=== PATIENT | female | born 1955 | race Caucasian/White ===

== ENCOUNTER → 2018-06-27 10:55 | Outpatient (CLI) | payer BC, SELFPAY ==
--- NOTE | 2018-06-27 10:58 | BI_ITS ---
MAMMOGRAPHY - BILATERAL SCREENING REASON FOR EXAM: Female, 63 years old. Routine annual screening examination. PERTINENT HISTORY: Non-contributory. TECHNIQUE: Digital bilateral breast medina (3D mammographic acquisition) in the CC and MLO projections. 2-D mediolateral oblique (MLO) and craniocaudad (CC) views of both breasts were obtained. CAD: Full Field Digital Mammography with Computer Added Detection was performed. COMPARISON: Comparison is made with prior study dated June 24, 2017 and June 05, 2016. FINDINGS: Breast Composition: The breasts are heterogeneously dense, which may obscure small masses. There are no dominant masses or suspicious calcifications. Stable small benign-appearing axillary lymph nodes. Stable asymmetry of breast tissue with more breast tissue is seen in the deep upper medial portion of the right breast as compared to the left side. No other significant abnormalities are identified. There has been no significant change since the prior study. BI/SCREENING MAMM (CAD), BILAT IMPRESSION: Stable bilateral screening mammogram. Yearly follow-up mammogram recommended. (A) ASSESSMENT CATEGORY: BIRADS Category 2: Benign. A letter regarding these results will be sent to the patient by the facility within 30 days. Approximately 10% of breast cancers are not detected by mammography. A normal mammogram should not delay biopsy of a clinically suspicious abnormality. [id number] Electronically Signed: Camilo Wang MD at 12:47 EDT Tel [phone], Service support ,
== END ==
PROVIDERS: Family Provider Family Medicine; PCP Family Medicine; Visit Provider Obstetrics & Gynecology
DX: Z12.31 Encounter for screening mammogram for malignant neoplasm of breast (principal)
CPT/HCPCS: 77063; 77067

== ENCOUNTER → 2019-06-28 10:15 | Outpatient (CLI) | payer BC, SELFPAY ==
--- NOTE | 2019-06-28 10:19 | BI_ITS ---
MAMMOGRAPHY - BILATERAL SCREENING REASON FOR EXAM: Female, 64 years old. Routine annual screening examination. PERTINENT HISTORY: Non-contributory. TECHNIQUE: Digital bilateral breast medina (3D mammographic acquisition) in the CC and MLO projections. 2-D mediolateral oblique (MLO) and craniocaudad (CC) views of both breasts were obtained. CAD: Full Field Digital Mammography with Computer Added Detection was performed. COMPARISON: Comparison is made with prior study dated June 27, 2018 and June 24, 2017. FINDINGS: Breast Composition: The breasts are extremely dense, which lowers the sensitivity of mammography. There are no dominant masses or suspicious calcifications. Stable benign-appearing bilateral axillary lymph nodes. No other significant abnormalities are identified. There has been no significant change since the prior study. BI/SCREENING MAMM (CAD), BILAT IMPRESSION: Stable bilateral screening mammogram. Yearly follow-up mammogram recommended. (A) ASSESSMENT CATEGORY: BIRADS Category 2: Benign. A letter regarding these results will be sent to the patient by the facility within 30 days. Approximately 10% of breast cancers are not detected by mammography. A normal mammogram should not delay biopsy of a clinically suspicious abnormality. [id number] Electronically Signed: Camilo Wang, at 14:20 EDT , Service support ,
== END ==
PROVIDERS: Family Provider Family Medicine; PCP Family Medicine; Referring Provider Obstetrics & Gynecology; Visit Provider Obstetrics & Gynecology
DX: Z12.31 Encounter for screening mammogram for malignant neoplasm of breast (principal)
CPT/HCPCS: 77067

== ENCOUNTER → 2019-12-21 10:41 | Outpatient (CLI) | payer BC, SELFPAY ==
[2019-12-12 10:24] VITALS: BMI 24.6
--- NOTE | 2019-12-21 10:46 | ECHOD_ITS ---
Reason For Study: ASD Procedure This was a 2D Doppler, Color Flow transthoracic echocardiogram. Exam performed in department. Left Ventricle Normal size and thickness. The estimated ejection fraction is 65 %. Stage 1 diastolic dysfunction. No regional wall motion abnormalities noted. Right Ventricle Normal size and thickness. Normal systolic function. Atria Normal left atrium. Normal right atrium. Normal atrial septum. Bubble contrast study negative for right to left interatrial shunt. Mitral Valve The mitral valve is structurally normal. No prolapse or stenosis seen. Tricuspid Valve Normal tricuspid valve. Trivial tricuspid valve insufficiency. Right ventricular systolic pressure estimated to be 25 mmHg. Aortic Valve Trisinus/trileaflet aortic valve. Mild focal aortic valve thickening. Pulmonic Valve Normal pulmonic valve. Great Vessels Normal aortic root. Normal arch. Normal inferior vena cava. Inferior vena cava collapse with sniff. Pericardium/Pleural No pericardial effusion. Medication 22 gauge I.V. with prn adaptor inserted into right arm. Performed a rapid injection of agitated mix of 9 cc saline and 1cc air to assess for atrial septal defect. MMode/2D Measurements & Calculations LVIDd: 4.0 cm IVSd: 0.72 cm Ao root diam: 2.8 cm LVIDs: 2.8 cm LVPWd: 0.80 cm FS: 29.2 % LAV(MOD-bp): 37.1 ml LA A4 area: 15.5 cm2 LA dimension(2D): 3.4 cm LAV(MOD-bp) Indexed: 21.3 ml/m2 LAV(MOD-sp2): 34.6 ml LAV(MOD-sp4): 37.9 ml RA A4 area: 12.2 cm2 Time Measurements MV dec time: 0.23 sec Doppler Measurements & Calculations MV E max thaddeus: 91.2 cm/sec Lat Peak E' Thaddeus: 11.3 cm/sec Med Peak E' Thaddeus: 6.9 cm/sec MV A max thaddeus: 113.3 cm/sec E/E' lat: 8.1 E/E' med: 13.2 MV E/A: 0.80 MV V2 max: 122.5 cm/sec Ao V2 max: 182.5 cm/sec LV V1 max: 131.7 cm/sec MV max P.0 mmHg Ao max P.3 mmHg LV V1 max P.9 mmHg MV V2 mean: 68.2 cm/sec MV mean P.2 mmHg MV V2 VTI: 36.9 cm TR max thaddeus: 222.6 cm/sec MV P1/2t-pr_phl: 120.5 msec TR max P.8 mmHg Interpretation Summary The estimated ejection fraction is 65 %. Stage 1 diastolic dysfunction. Bubble contrast study negative for right to left interatrial shunt. Trivial tricuspid valve insufficiency. Right ventricular systolic pressure estimated to be 25 mmHg. There is no comparison study available. Ordering Physician: Dereck Mohamud Referring Physician: HAWK PIERCE Performed By: Stephanie Lockwood, ASHTYN, RVT
== END ==
PROVIDERS: PCP Family Medicine; Referring Provider Internal Medicine Cardiovascular Disease; Visit Provider Internal Medicine Cardiovascular Disease
DX: R00.2 Palpitations (principal); Q24.8 Other specified congenital malformations of heart; R01.1 Cardiac murmur, unspecified; E78.5 Hyperlipidemia, unspecified; I10 Essential (primary) hypertension
CPT/HCPCS: 93306

== ENCOUNTER → 2020-01-31 10:20 | Outpatient (CLI) | payer BC, SELFPAY ==
[2019-12-12 10:24] VITALS: BMI 24.6
--- NOTE | 2020-01-31 10:22 | STE_ITS ---
Reason For Study: CHEST PAIN Stress Results Protocol: Monroe Protocol Maximum Predicted HR: 157 bpm Target HR: 133 bpm % Maximum Predicted HR: 90 % DurationHeart Rate Stage (mm:ss) (bpm) BP Comment BASELINE 63 128/50 STAGE 1 3:00 112 172/60 STAGE 2 3:00 136 162/60 STAGE 3 0:22 142 / INCREASED SOB AND LEG FATIGUE RECOVERY 83 142/60 Stress Duration: 6:22 mm:ss Maximum Stress HR: 142 bpm Baseline Echocardiogram Findings The estimated ejection fraction is 65 %. Stress Echo Wall motion Data Resting WM Intermediate WM Stress WM Resting Wall Motion Wall Motion Stress No regional wall motion No regional wall motion abnormalities noted. abnormalities noted. EKG Data The baseline ECG displays normal sinus rhythm. The patient exercised according to the regular Monroe protocol for a total duration of 6:22. The maximum heart rate attained was 148 beats per minute. This was 94% of maximum predicted heart rate. The patient exercised into stage 3 of the Monroe protocol. During stress, there were no ST or T wave changes noted to suggest ischemia. No arrhythmias noted. No clinical angina was noted. Interpretation Summary The estimated ejection fraction is 65 %. Normal, adequate, treadmill echocardiogram. Negative for ischemia by EKG and echocardiographic criteria. No anginal symptoms noted. No arrhythmias noted. Appropriate blood pressure response to exercise. Average exercise capacity for age. Test terminated due to the attainment of target heart rate, dyspnea and leg discomfort. Final LVEF is 75%. Patient tolerated procedure well. No complications. Ordering Physician: Dereck Mohamud MD Referring Physician: Dereck Mohamud Performed By: Stephanie Lockwood, ASHTYN, RVT
== END ==
PROVIDERS: PCP Family Medicine; Referring Provider Internal Medicine Cardiovascular Disease; Visit Provider Internal Medicine Cardiovascular Disease
DX: R07.9 Chest pain, unspecified (principal); R00.2 Palpitations; R01.1 Cardiac murmur, unspecified; Q24.8 Other specified congenital malformations of heart; I10 Essential (primary) hypertension; E78.5 Hyperlipidemia, unspecified
CPT/HCPCS: 93017; 93350

== ENCOUNTER → 2020-06-18 | Outpatient (CLI) | payer BC, SELFPAY ==
[2019-12-12 10:24] VITALS: BMI 24.6
[2020-06-24 01:42] LABS: HPV APTIMA, High Risk Negative (Negative)
== END | disposition home or self-care (01) ==
LOC: LABSPEC 16:00
PROVIDERS: PCP Family Medicine; Visit Provider Obstetrics & Gynecology
DX: Z12.4 Encounter for screening for malignant neoplasm of cervix (principal)
CPT/HCPCS: 87624; 88175; G0145

== ENCOUNTER → 2020-07-25 15:15 | Outpatient (CLI) | payer BC, SELFPAY ==
[2019-12-12 10:24] VITALS: BMI 24.6
[2020-07-04 11:06] VITALS: BMI 25.4
--- NOTE | 2020-07-25 15:17 | BI_ITS ---
MAMMOGRAPHY - BILATERAL SCREENING REASON FOR EXAM: Female, 65 years old. Routine annual screening examination. PERTINENT HISTORY: Non-contributory. TECHNIQUE: Digital bilateral breast barby (3D mammographic acquisition) in the CC and MLO projections. 2-D mediolateral oblique (MLO) and craniocaudad (CC) views of both breasts were obtained. CAD: Full Field Digital Mammography with Computer Added Detection was performed. COMPARISON: Comparison is made with prior study dated 06/28/2019 and 06/27/2018. FINDINGS: Breast Composition: The breasts are extremely dense, which lowers the sensitivity of mammography. There are no dominant masses or suspicious calcifications. Stable benign appearing bilateral axillary lymph nodes. No other significant abnormalities are identified. There has been no significant change since the prior study. BI/SCREEN MAMM (CAD) W/BARBY BILAT IMPRESSION: Stable bilateral screening mammogram. Yearly follow-up mammogram recommended. (A) ASSESSMENT CATEGORY: BIRADS Category 1: Negative. A letter regarding these results will be sent to the patient by the facility within 30 days. Approximately 10% of breast cancers are not detected by mammography. A normal mammogram should not delay biopsy of a clinically suspicious abnormality. [id number] Electronically Signed: Camilo Wang, at 8:52 EDT , Service support ,
--- NOTE | 2020-07-25 15:25 | BD_ITS ---
STUDY: DUAL ENERGY X-RAY ABSORPTIOMETRY / DXA REASON FOR EXAM: Female, 65 years old. Age of denise 53. Pat is 153.6# and 64 and quot; a loss of 1 and quot; per pat. Past hx of smoking. Takes a multi-vit. Exercises a little to moderatly. TECHNIQUE: Bone Mineral Density (BMD) measurements of lumbar spine and bilateral hips were obtained. COMPARISON: None. FINDINGS: Lumbar Spine (L1-L4): g/cm2 (1.251) / T-score (0.6) / Z-score (2.1) Findings are suggestive of normal bone density with a low fracture risk. Left Femur Total: g/cm2 (0.929) / T-score (-0.6) / Z-score (0.5) Left Femoral Neck: g/cm2 (0.864) / T-score (-1.3) / Z-score (0.2) Right Femur Total: g/cm2 (0.954) / T-score (-0.4) / Z-score (0.7) Right Femoral Neck: g/cm2 (0.875) / T-score (-1.2) / Z-score (0.2) BD/Dexa Bone Density Study IMPRESSION: The patient is considered osteopenic as outlined below according to World Italo Organization (WHO) criteria with a low fracture risk. Reference Information: The T-score is the number of standard deviations above or below the standard which is normal for young adults at their peak bone mineral density. The World Health Organization (WHO) interprets the T-scores as follows: Above -1 Normal bone density Between -1 and -2.5 Osteopenia Equal to / or below -2.5 Osteoporosis As a practical clinical guideline, osteopenia may be graded as follows: Mild -1 through -1.5 Moderate -1.6 through -2.0 Severe -2.1 through -2.4 The Z-score is the number of standard deviations above or below age-matched controls. A Z-score of less than -1.5 would be considered abnormal. References: 1. NIH Osteoporosis and Related Bone Diseases www osteo.org 2. International Society for Clinical Densitometry www iscd.org 3. National Osteoporosis Foundation www nof.org Electronically Signed: Camilo Wang, at 13:33 EDT , Service support ,
== END ==
PROVIDERS: PCP Family Medicine; Referring Provider Obstetrics & Gynecology; Visit Provider Obstetrics & Gynecology
DX: Z13.820 Encounter for screening for osteoporosis (principal); Z12.31 Encounter for screening mammogram for malignant neoplasm of breast
CPT/HCPCS: 77063; 77067; 77080

== ENCOUNTER → 2021-05-20 10:57 | Outpatient (CLI) | payer MEDICARE, SELFPAY ==
[2021-05-08 10:07] VITALS: BMI 25.9
--- NOTE | 2021-05-20 11:01 | CDU_ITS ---
Reason For Study: carotid artery disease, bruit Rt. Velocities/BP Lt. Velocities/BP Prox CCA 100.8/13.4 cm/sec. Prox CCA 103.5/20.0 cm/sec. Mid CCA 89.1/13.4 cm/sec. Mid CCA 93.7/12.6 cm/sec. Dist CCA 72.1/13.4 cm/sec. Dist CCA 53.2/9.0 cm/sec. Prox ICA 79.4/16.8 cm/sec. Prox ICA 60.5/13.9 cm/sec. Mid ICA 85.0/22.3 cm/sec. Mid ICA 66.7/20.0 cm/sec. Dist ICA 80.5/24.5 cm/sec. Dist ICA 90.0/23.7 cm/sec. Rt. ICA/CCA = 1.0. Lt. ICA/CCA = 1.0. Prox ECA 179.5/20.6 cm/sec. Prox ECA 86.3/7.7 cm/sec. Rt. Vert. 59.7/14.6 cm/sec. Lt. Vert. 40.9/12.7 cm/sec. Right Extracranial There is intimal thickening but no significant atherosclerotic plaque noted in the right common carotid artery. There is intimal thickening but no significant atherosclerotic plaque noted in the right internal carotid artery. There is heterogeneous, smooth atherosclerotic plaque noted in the right external carotid artery. Antegrade flow is noted in the right vertebral artery. Left Extracranial There is intimal thickening but no significant atherosclerotic plaque noted in the left common carotid artery. There is intimal thickening but no significant atherosclerotic plaque noted in the left internal carotid artery. There is intimal thickening but no significant atherosclerotic plaque noted in the left external carotid artery. Antegrade flow is noted in the left vertebral artery. Procedure Carotid Duplex [id number]. This is a Carotid Duplex examination using B-mode, color flow and specral Doppler. The exam was diagnostic. Exam performed in department. VL/Carotid Duplex Ultrasound Interpretation Summary Mild (<50%) stenosis right extracranial internal carotid. Mild (<50%) stenosis left extracranial internal carotid. Flow within the vertebral arteries is antegrade bilaterally. Ordering Physician: Davey English Performed By: Marshal Garcia RVT
== END ==
PROVIDERS: PCP Family Medicine; Referring Provider Internal Medicine Cardiovascular Disease; Visit Provider Internal Medicine Cardiovascular Disease
DX: I65.23 Occlusion and stenosis of bilateral carotid arteries (principal); I25.10 Atherosclerotic heart disease of native coronary artery without angina pectoris; I77.9 Disorder of arteries and arterioles, unspecified; I10 Essential (primary) hypertension; E78.5 Hyperlipidemia, unspecified; Q24.8 Other specified congenital malformations of heart; R01.1 Cardiac murmur, unspecified; R00.2 Palpitations; R09.89 Other specified symptoms and signs involving the circulatory and respiratory systems
CPT/HCPCS: 93880

== ENCOUNTER → 2021-08-27 10:53 | Outpatient (CLI) | payer MEDICARE, SELFPAY ==
--- NOTE | 2021-08-27 10:56 | BI_ITS ---
MAMMOGRAPHY - BILATERAL SCREENING REASON FOR EXAM: Female, 66 years old. Routine annual screening examination. PERTINENT HISTORY: Non-contributory. TECHNIQUE: Digital bilateral breast barby (3D mammographic acquisition) in the CC and MLO projections. 2-D mediolateral oblique (MLO) and craniocaudad (CC) views of both breasts were obtained. CAD: Full Field Digital Mammography with Computer Added Detection was performed. COMPARISON: Comparison is made with prior study dated 07/25/2020 and 06/28/2019 FINDINGS: Breast Composition: The breasts are extremely dense, which lowers the sensitivity of mammography. There are no dominant masses or suspicious calcifications. Stable small benign-appearing bilateral axillary lymph nodes. No other significant abnormalities are identified. There has been no significant change since the prior study. BI/SCRN MAMM (CAD)W/BARBY BILAT IMPRESSION: Stable bilateral screening mammogram. Yearly follow-up mammogram recommended. (A) ASSESSMENT CATEGORY: BIRADS Category 2: Benign. A letter regarding these results will be sent to the patient by the facility within 30 days. Approximately 10% of breast cancers are not detected by mammography. A normal mammogram should not delay biopsy of a clinically suspicious abnormality. [id number] Electronically Signed: Camilo Wang MD at 12:42 EST , Service support ,
== END ==
PROVIDERS: PCP Family Medicine; Visit Provider Obstetrics & Gynecology
DX: Z12.31 Encounter for screening mammogram for malignant neoplasm of breast (principal)
CPT/HCPCS: 77063; 77067

== ENCOUNTER → 2022-08-31 | Outpatient (CLI) | payer MEDICARE, SELFPAY ==
--- NOTE | 2022-08-31 12:35 | BI_ITS ---
MAMMOGRAPHY - BILATERAL SCREENING REASON FOR EXAM: Female, 67 years old. Routine annual screening examination. PERTINENT HISTORY: Non-contributory. TECHNIQUE: Digital bilateral breast barby (3D mammographic acquisition) in the CC and MLO projections. 2-D mediolateral oblique (MLO) and craniocaudad (CC) views of both breasts were obtained. CAD: Full Field Digital Mammography with Computer Added Detection was performed. COMPARISON: Comparison is made with prior study of 08/27/2021 and 07/25/2020. FINDINGS: Breast Composition: The breasts are extremely dense, which lowers the sensitivity of mammography. There are no dominant masses or suspicious calcifications. Stable small benign-appearing lateral axillary lymph nodes. No other significant abnormalities are identified. There has been no significant change since the prior study. BI/SCRN MAMM (CAD)W/BARBY BILAT IMPRESSION: Stable bilateral screening mammogram. Yearly follow-up mammogram recommended. (A) ASSESSMENT CATEGORY: BIRADS Category 2: Benign. A letter regarding these results will be sent to the patient by the facility within 30 days. Approximately 10% of breast cancers are not detected by mammography. A normal mammogram should not delay biopsy of a clinically suspicious abnormality. [id number] Electronically Signed: Camilo Wang MD at 14:04 EST ,
== END | disposition home or self-care (01) ==
PROVIDERS: PCP Family Medicine; Visit Provider Family Medicine
DX: Z12.31 Encounter for screening mammogram for malignant neoplasm of breast (principal)
CPT/HCPCS: 77063; 77067

== ENCOUNTER → 2023-09-23 | Outpatient (CLI) | payer MEDICARE, SELFPAY ==
--- NOTE | 2023-09-23 11:55 | BI_ITS ---
MAMMOGRAPHY - BILATERAL SCREENING 3-D TOMOSYNTHESIS REASON FOR EXAM: Female, 68 years old. Routine annual screening mammogram. PERTINENT HISTORY: No significant family history. TECHNIQUE: 2-D mammograms and 3-D Tomosynthesis of the breast (s) were performed. CAD was performed. COMPARISON: August 31, 2022, August 27, 2021 FINDINGS: The breast composition is heterogeneously dense that can obscure small breast masses. Stable lymph nodes and scattered benign calcifications. No dominant masses, suspicious microcalcifications, asymmetries, skin thickening or nipple retraction. BI/SCRN MAMM (CAD)W/BARBY BILAT IMPRESSION: No interval change and no mammographic signs of malignancy. Routine yearly mammogram recommended. ASSESSMENT CATEGORY: BIRADS Category 2: Benign. A letter regarding these results will be sent to the patient by the facility within 30 days. FOLLOW UP RECOMMENDATION: Yearly follow up mammogram recommended. (A) Approximately 10% of breast cancers are not detected by mammography. A normal mammogram should not delay biopsy of a clinically suspicious abnormality. Electronically Signed: Kris Hernandez MD at 15:13 EST ,
--- OUTSIDE RECORDS SUMMARY | 2023-09-23 12:22 | XMS RPT_ITS | CCD ---
Author Name Unknown Address [address] [place] [address] Organization [facility] Care Team Providers Care Balance Weigher Name Role Phone Unavailable Primary Care Provider Unavailabl e HILLS, HAWK Attending Unavailable HILLS, HAWK Admitting Unavailable HILLS, HAWK Primary Care Unavailable BELLEFONTAINE, HAWK Consulting Unavailable PROVIDER, UNKNOWN Consulting Unavailable MOODISPAW, CHICHI F Admitting Unavailable MOODISPAW, CHICHI F Primary Care Unavailable MOODISPAW, CHICHI F Attending Unavailable BELLEFONTAINE, HAWK Attending Unavailable BELLEFONTAINE, HAWK Admitting Unavailable BELLEFONTAINE, HAWK Primary Care Unavailable BELLEFONTAINE, HAWK Consulting Unavailable PROVIDER, UNKNOWN Consulting Unavailable BELLEFONTAINE, HAWK Attending Unavailable BELLEFONTAINE, HAWK Admitting Unavailable BELLEFONTAINE, HAWK Primary Care Unavailable BELLEFONTAINE, HAWK Consulting Unavailable PROVIDER, UNKNOWN Consulting Unavailable VALADEZ, NESTOR Attending Unavailable RORY, NESTOR Attending Unavailable Problems Active Problems Problem Classification Problem Date Documented Da te Episodic/Chronic Disorders of lipid metabolism (1 source) Mixed hyperlipidemia; Translations: [Mixed hyperlipidemia] Onset: 06-09-2023 Chronic Essential hypertension (1 source) Essential (primary) hypertension; Translations: [Essential (primary) hypertension] Onset: 06-09-2023 Chronic Past or Other Problems Problem Classification Problem Date Documented Da te Episodic/Chronic Abdominal pain (1 source) Right upper quadrant pain; Translations: [Right upper quadrant pain] Onset: 10-20-2022 Episodic Results Test Name Value Interpretation Reference Range Facil ity Encounters Encounter Date Encounter Type Care Provider Facility Start: 08-16-2023 End[facility]: [facility] End: 06-09-2023 ambulatory [facility] Start: 11-02-2022 End: 11-02-2022 ambulatory [facility] Start: 10-27-2022 End: 10-27-2022 ambulatory [facility] Start: 10-20-2022 End: 10-20-2022 ambulatory [facility] Start: 08-07-2022 End: 08-07-2022 ambulatory CHICHI LEE [facility] Start: 11-09-2019 End: 11-09-2019 Patient encounter procedure Nestor Valadez [facility] Plan of Treatment Date Care Activity Detail Author Start: 05-14-2020 End: 05-14-2020 Office Visit 05/14/2020 Office Visit Dentistry Nestor Valadez, [facility] Start: 02-01-2020 End: 02-01-2020 Office Visit 02/01/2020 Office Visit Dentistry Shreya Li DMD [facility] Start: 05-28-2019 Influenza vaccinatio n given INFLUENZA VACCINE (#1) [facility] Start: 2016 Varicella-zoster vaccine (product) ADULT VZV VACCINE [facility] Start: 2006 Colonoscopy COLONOSCOPY 10 YR [facility] Start: 2006 Screening for malign ant neoplasm of colon [facility] Start: 2006 SHINGLES VACCINE (1 of 2) SHINGLES VACCINE (1 of 2) [facility] Start: 1996 Screening mammography MAMMOGRAM G [facility] Start: 1977 Human papilloma viru s screening PAP SMEAR [facility] Start: 1977 Tetanus, diphtheria and acellular pertussis vaccination TDAP/TD ADULT [facility] Start: 1974 ANNUAL WELLNESS VISIT ANNUAL WELLNES S VISIT [facility] Start: 1968 Adult depression screening assessment DEPRESSION SCREENING [facility] Start: 1956 Hepatitis C screening HEPATITIS C SC REENING [facility] Payers Date Payer Category Payer Unknown [id number] 1956 Unknown [id number] 1956 Unknown [id number] 1956 Unknown [id number] 1956 Unknown [id number] 1956 Unknown [id number] Private Health Insurance [id number] Unknown [employer] M [employer]TLIFE DENTAL xxxxxxxxx Effective for all dates DENTAL xxxxxxxxx [id number] Unknown [id number] Social History Date Type Detail Facility Tobacco smoking status NHIS Unknown if ev er smoked [facility] Sex Assigned At Not on file [facility] Advance Directives No Advanced Directives Records FoundDocuments on File Type Date Recorded Patient Historian Research Assistant Expl anation Advance Directives and Living Will Power of Insurance Sales Assistant Summary Purpose Family History No Family History Records FoundNo Family History Records FoundNo Family History Records Found Additional Source Comments INFORMATION SOURCE (unrecogn ized section and content) DATE CREATED AUTHOR AUTHOR'S ORGANIZ ATION 06/10/2023 [facility] DATE CREATED AUTHOR AUTHOR'S ORGANIZ ATION 08/17/2023 [facility] FOR RECORDS PERTAINING TO PATIENTS WHO ARE OR HAVE BEEN ENROLLED IN A CHEMICAL DEPENDENCY/SUBSTANCEABUSE PROGRAM, SOME INFORMATION MAY BE OMITTED. This clinical summary was aggregated from multiple sources. Caution should be exercised in using it in the provision of clinical care. This summary normalizes information from multiple sources, and as a consequence, information in this document may materially change the coding, format and clinical context of patient data. In addition, data may be omitted in some cases. CLINICAL DECISIONS SHOULD BE BASED ON THE PRIMARY CLINICAL RECORDS. [employer] provides no warranty or guarantee of the accuracy or completeness of information in this document.
== END | disposition home or self-care (01) ==
LOC: OPBI 11:53
PROVIDERS: PCP Family Medicine; Referring Provider Family Medicine; Visit Provider Family Medicine
DX: Z12.31 Encounter for screening mammogram for malignant neoplasm of breast (principal)
CPT/HCPCS: 77063; 77067

== ENCOUNTER → 2024-07-07 | Outpatient (CLI) | payer MEDICARE, SELFPAY ==
[2024-07-07 11:19] LABS: Absolute Lymphocyte Count 1.79 X10^3/uL (0.83-4.51); Absolute Neutrophil Count 3.1 X10^3/uL (2.0-7.7); Basophil# 0.03 X10^3/uL; Basophil% 0.5 % (0-1); Eosinophil# 0.18 X10^3/uL; Eosinophils% 3.3 % (0-5); Hematocrit 43.5 % (37-47); Hemoglobin 13.8 g/dL (12.0-15.0); Lymphocyte # 1.79 X10^3/ul (0.83-4.51); Lymphocyte % 32.4 % (19-41); Mean Corp Hgb Conc 31.7 g/dL (32-36); Mean Corpuscular Hgb 31.3 pg (27.0-32.0); Mean Corpuscular Volume 98.6 fL (81-99); Mean Platelet Vol. 11.2 fl (6.2-12.0); Monocyte# 0.37 X10^3/uL; Monocyte% 6.7 % (0-10); NRBC Flagged by Analyzer 0 % (0-5); Neutrophil # 3.14 X10^3/uL (2.7-7.7); Neutrophil % 56.9 % (47-70); Platelet Count 205 K/mm3 (150-450); RBC Distribution Width CV 12.9 % (11.6-14.6); RBC Distribution Width SD 46.4 fl (35.1-43.9); Red Blood Count 4.41 M/mm3 (4.2-5.4); White Blood Count 5.5 K/mm3 (4.4-11.0)
[2024-07-07 11:54] LABS: ALB/GLOB Ratio 1.1 RATIO (0.9-2.4); AST(SGOT) 21 U/L (15-37); Alanine Aminotransfer ALT/SGPT 43 U/L (13-56); Alkaline Phosphatase 68 U/L (45-117); Anion Gap 6 (5-15); BUN 14 mg/dL (7-18); BUN/Creat Ratio 21.3 RATIO (10-20); Calcium,Total 9.5 mg/dL (8.5-10.1); Chloride 107 mmol/L (98-107); Cholesterol 216 mg/dL (200); Creatinine, Serum 0.66 mg/dL (0.55-1.02); EST Glomerular Filtration Rate 95 mL/min (>60); Est Glom Filt Rate - Afr Amer 115 mL/min (>60); Globulin 3.6 g/dL (2.2-4.2); Glucose 96 mg/dL (74-106); High Density Lipoprotein 50 mg/dL; Magnesium 1.8 mg/dL (1.6-2.6); Potassium 3.8 mmol/L (3.5-5.1); Protein, Total 7.6 g/dL (6.4-8.2); Sodium Level 139 mmol/L (136-145); T4 Free Direct 0.85 ng/dL (0.76-1.46); Triglycerides 249 mg/dL; Very Low Density Lipoprotein 50 mg/dL (5-40)
== END | disposition home or self-care (01) ==
LOC: LAB 10:33
PROVIDERS: PCP Family Medicine; Referring Provider Nurse Practitioner Family; Visit Provider Nurse Practitioner Family
DX: I77.9 Disorder of arteries and arterioles, unspecified (principal); R00.2 Palpitations; Q24.8 Other specified congenital malformations of heart; R01.1 Cardiac murmur, unspecified; I10 Essential (primary) hypertension; E78.5 Hyperlipidemia, unspecified
CPT/HCPCS: 36415; 80053; 80061; 83735; 84439; 84443; 85025

== ENCOUNTER → 2024-07-24 | Outpatient (CLI) | payer MEDICARE, SELFPAY ==
--- NOTE | 2024-07-24 09:13 | CDU_ITS ---
Reason For Study: Dizziness Rt. Velocities/BP Lt. Velocities/BP Prox CCA 103/20 cm/sec. Prox CCA 162/32 cm/sec. Mid CCA 97/18 cm/sec. Mid CCA 124/32 cm/sec. Dist CCA 69/16 cm/sec. Dist CCA 90/28 cm/sec. Prox ICA 75/19 cm/sec. Prox ICA 93/14 cm/sec. Mid ICA 88/24 cm/sec. Mid ICA 105/25 cm/sec. Dist ICA 115/28 cm/sec. Dist ICA 90/27 cm/sec. Rt. ICA/CCA = 1.2. Lt. ICA/CCA = 0.9. Prox ECA 158/18 cm/sec. Prox ECA 118/26 cm/sec. Rt. Vert. 83/23 cm/sec. Lt. Vert. 83/18 cm/sec. Right Extracranial There is intimal thickening but no significant atherosclerotic plaque noted in the right common carotid artery. There is heterogeneous, irregular atherosclerotic plaque noted in the right internal carotid artery. There is intimal thickening but no significant atherosclerotic plaque noted in the right external carotid artery. Antegrade flow is noted in the right vertebral artery. Left Extracranial There is homogeneous, irregular atherosclerotic plaque noted in the left common carotid artery. There is heterogeneous, irregular atherosclerotic plaque noted in the left internal carotid artery. There is intimal thickening but no significant atherosclerotic plaque noted in the left external carotid artery. Antegrade flow is noted in the left vertebral artery. Procedure Carotid Duplex [id number]. This is a Carotid Duplex examination using B-mode, color flow and specral Doppler. Exam performed in department. VL/Carotid Duplex Ultrasound Interpretation Summary Mild (<50%) stenosis right extracranial internal carotid. Mild (<50%) stenosis left extracranial internal carotid. Patent and antegrade vertebrals bilaterally. Ordering Physician: Teagan Purcell Referring Physician: Salima Linn Performed By: Georgina Angel, DULCECS, RVT
--- OUTSIDE RECORDS SUMMARY | 2024-07-24 09:45 | XMS RPT_ITS | CCD ---
Author Organization [facility] Care Team Providers Care Heel Stiffener Name Role Phone Unavailable Primary Care Provider Unavailyaya e MARIUSZ, RITA Admitting Unavailable MARIUSZ, RITA Attending Unavailable RITA VEE Primary Care Unavailable HAWK PIERCE Consulting Unavailable PROVIDER, UNKNOWN Consulting Unavailable NESTOR VALADEZ Attending Unavailable NESTOR VALADEZ Attending Unavailable Results Test Name Value Interpretation Reference Range Facility CBC + DIFFon 06-09-2024 Baso # 0.01 x10EE3/UL Normal 0.00 - 0.10 [facility] Comment on above: Performed By: #### 2 73464 #### [facility],[address] [place], [place] [id number] Basophils/100 WBC (Bld) 0.2 % Normal 0.0 - 2.0 [facility] Comment on above: Performed By: #### 2 23947 #### [place] [address] CBC + DIFF Normal [facility] Comment on above: Result Comment: CBC- COMPLETE BLOOD COUNT Performed By: #### 2 69284 #### [facility],[address] [place] [address] EO # 0.17 x10EE3/UL Normal 0.00 - 0.50 [facility] Comment on above: Performed By: #### 2 54968 #### [facility],[address] [place] [address]361 Eosinophils/100 WBC (Bld) 3.0 % Normal 0.0 - 7.0 [facility] Comment on above: Performed By: #### 2 34543 #### [facility],[address] [place], [place] [phone] Erythrocyte distribution width (RBC) [Ratio] 12.4 % Normal 12.0 - 15.6 [facility] Comment on above: Performed By: #### 2 76108 #### [facility],[address] [place] [address] Hematocrit (Bld) [Volume fraction] 38.3 % Normal 34.0 - 46.0 [facility] Comment on above: Performed By: #### 2 51431 #### [facility],[address] [place] [address] Hemoglobin (Bld) [Mass/Vol] 13.1 g/dL Normal 12.0 - 16.0 [facility] Comment on above: Performed By: #### 2 96821 #### [facility],[address] [place] [address] Lymph # 1.62 x10EE3/UL Normal 0.80 - 2.80 [facility] Comment on above: Performed By: #### 2 07205 #### [facility],[address] [place] [address] Lymphocytes/100 WBC (Bld) 29.1 % Normal 20.0 - 45.0 [facility] Comment on above: Performed By: #### 2 02440 #### [facility],[address] [place] [address] MANUAL DIFF N/A Normal [facility] Comment on above: Performed By: #### 2 60607 #### [facility],[address] [place], [place] [phone] MCH (RBC) [Entitic mass] 32 pg Normal 27 - 33 [facility] Comment on above: Performed By: #### 2 99805 #### [place] [address] MCHC 34 X10 3 Normal 32 - 36 [facility] Comment on above: Performed By: #### 2 32393 #### [facility],[address],[place] [address] MCV (RBC) [Entitic vol] 94 fL Normal 80 - 99 [facility] Comment on above: Performed By: #### 2 50156 #### [address] [address] [place] # 0.36 x10EE3/UL Normal 0.20 - 1.00 [facility] Comment on above: Performed By: #### 2 99256 #### [address] [address] MONOS % 6.5 % Normal 0.0 - 10.0 [facility] Comment on above: Performed By: #### 2 99359 #### [address] [address] Morphology Nathan (Bld) [Interp] N/A Normal [facility] Comment on above: Performed By: #### 2 82903 #### [place] [address] Neut # 3.39 x10EE3/UL Normal 1.50 - 7.10 [facility] Comment on above: Performed By: #### 2 30371 #### [place] [id number] Neutrophils/100 WBC (Bld) 61.1 % Normal 46.0 - 76.0 [facility] Comment on above: Performed By: #### 2 95757 #### [address] [address] PLATELET 202 x10EE3/UL Normal 150 - 450 [facility] Comment on above: Performed By: #### 2 06119 #### [address] [address] Platelet mean volume (Bld) [Entitic vol] 8.9 fL Normal 6.6 - 10.5 [facility] Comment on above: Result Comment: AUTO MATED DIFFERENTIAL Performed By: #### 2 25106 #### [facility],[address] [place] [address] RBC 4.08 x 10EE6/UL Low 4.10 - 5.30 [facility] Comment on above: Performed By: #### 2 71861 #### [facility],[address] [place] [address] WBC 5.6 x 10EE3/UL Normal 4.5 - 10.8 [facility] Comment on above: Performed By: #### 2 22020 #### [facility],[address] [place] [address] CMP with eGFRon 06-09-2024 AGE 69 years Normal [facility] Comment on above: Performed By: #### 2 32470 #### [facility],[address] [place] [address] Albumin [Mass/Vol] 3.7 g/dL Normal 3.4 - 5.0 [facility] Comment on above: Performed By: #### 2 70685 #### [facility],[address] [place] [address]68 Albumin/Globulin [Mass ratio] 0.9 {ratio} Normal 0.9 - 1.6 [facility] Comment on above: Performed By: #### 2 91702 #### [facility],[address] [place] [address] ALK PHOS 61 U/L Normal 46 - 116 [facility] Comment on above: Performed By: #### 2 49523 #### [facility],[address] [place] [address] ALT [Catalytic activity/Vol] 39 U/L Normal 16 - 63 [facility] Comment on above: Performed By: #### 2 78768 #### [facility],[address] [place] [address] Anion gap [Moles/Vol] 15 mmol/L Normal 10 - 20 [facility] Comment on above: Performed By: #### 2 09999 #### [facility],[address] [place] [address]256 AST [Catalytic activity/Vol] 21 U/L Normal 13 - 39 [facility] Comment on above: Performed By: #### 2 45152 #### [facility],[address] [place] [address] B/C RATIO 20 ratio Normal 0 - 30 [facility] Comment on above: Performed By: #### 2 27281 #### [facility],[address] [place] [address] Bilirubin [Mass/Vol] 0.5 mg/dL Normal 0.2 - 1.0 [facility] Comment on above: Performed By: #### 2 32817 #### [facility],[address] [place] [address] Calcium [Mass/Vol] 9.3 mg/dL Normal 8.5 - 10.1 [facility] Comment on above: Performed By: #### 2 49091 #### [facility],[address] [place] [address] Chloride [Moles/Vol] 104 mmol/L Normal 98 - 107 [facility] Comment on above: Performed By: #### 2 58145 #### [facility],[address] [place] [address] 117[address] CMP with eGFR Normal [facility] Comment on above: Result Comment: COMP REHENSIVE METABOLIC PANEL Performed By: #### 2 81021 #### [facility],[address] [place] [address] CO2 [Moles/Vol] 25.7 mmol/L Normal 21.0 - 32.0 [facility] Comment on above: Performed By: #### 2 42067 #### [facility],[address] [place] [address] Creatinine [Mass/Vol] 0.60 mg/dL Normal 0.55 - 1.02 [facility] Comment on above: Performed By: #### 2 18340 #### [facility],[address] [place] [address]97 GFR/1.73 sq M.predicted among non-blacks MDRD (S/P/Bld) [Vol rate/Area] mL/min/{1.73_m2} Normal 60 - 999 [facility] Comment on above: Performed By: #### 2 84405 #### [facility],[address] [place] [address] Result Comment: ACCO RDING TO THE NATIONAL KIDNEY DISEASE EDUCATION PROGRAM(NKDE), A NORMAL eGFR IS A VALUE GREATER THAN OR EQUAL TO 60 ML/MIN/1.73 SQ METERS. CHRONIC KIDNEY DISEASE: <60mL/MIN/1.73 SQ METERS KIDNEY FAILURE: <15mL/MIN/1.73 SQ METERS THIS TEST SHOULD ONLY BE USED FOR PATIENTS 18 YEARS OF AGE AND OLDER. Globulin (S) [Mass/Vol] 3.9 g/dL High 1.5 - 3.8 [facility] Comment on above: Performed By: #### 2 21337 #### [facility],[address] [place] [address]99 Glucose [Mass/Vol] 90 mg/dL Normal 74 - 106 [facility] Comment on above: Performed By: #### 2 56089 #### [facility],[address] [place] [address] Potassium [Moles/Vol] 3.9 mmol/L Normal 3.5 - 5.1 [facility] Comment on above: Performed By: #### 2 58096 #### [facility],[address] [place] [address] Protein [Mass/Vol] 7.6 g/dL Normal 6.4 - 8.2 [facility] Comment on above: Performed By: #### 2 00756 #### [facility],[address] [place] [address]3437 Sodium [Moles/Vol] 141 mmol/L Normal 136 - 145 [facility] Comment on above: Performed By: #### 2 67596 #### [facility],[address] [place] [address]494 Urea nitrogen [Mass/Vol] 12 mg/dL Normal 7 - 18 [facility] Comment on above: Performed By: #### 2 31902 #### [facility],[address] [place] [address] LIPID PROFILEon 06-09-2024 Cholesterol [Mass/Vol] 187 mg/dL Normal 0 - 240 [facility] Comment on above: Performed By: #### 2 62217 #### [facility],[address] [place] [address]99 Cholesterol in HDL [Mass/Vol] 53 mg/dL Normal 40 - 60 [facility] Comment on above: Performed By: #### 2 54978 #### [facility],[address] [place] [address] Cholesterol in LDL [Mass/Vol] 109 mg/dL Normal 0 - 129 [facility] Comment on above: Performed By: #### 2 57351 #### [facility],[address] [place] [address] Cholesterol.total/ Cholesterol in HDL [Mass ratio] 3.5 {ratio} Normal 0.0 - 5.0 [facility] Comment on above: Performed By: #### 2 16712 #### [facility],[address] [place] [address] Lipid 1996 panel Normal [facility] Comment on above: Result Comment: LIPI D PROFILE Performed By: #### 2 73713 #### [facility],[address] [place] [address] Triglyceride [Mass/Vol] 127 mg/dL Normal 0 - 150 [facility] Comment on above: Performed By: #### 2 91434 #### [facility],[address] [place] [address] MAGNESIUMon 06-09-2024 Magnesium [Mass/Vol] 1.9 mg/dL Normal 1.8 - 2.4 [facility] Comment on above: Performed By: #### 2 68622 #### [facility],[address] [place] [address] T4-FREE (FREE THYROXINE)on 0 06-09-2024 Free T4 [Mass/Vol] 0.80 ng/dL Normal 0.76 - 1.46 [facility] Comment on above: Result Comment: P otential of falsely elevated results when biotin concentrations are > 10 ng/mL. Performed By: #### 2 47247 #### [facility],[address] [place] [address] TSHon 06-09-2024 TSH Qn 2.71 m[IU]/L Normal 0.35 - 3.74 [facility] Comment on above: Performed By: #### 2 54839 #### [facility],[address] [place] [address] COMPREHENSIVE METABOLIC PANE [facility] 11-30-2019 Albumin [Mass/Vol] 4.4 g/dL Normal 3.6-5.1 [facility] Comment on above: Performed By: #### 7 600, 79413 #### [facility]-[place] [id number] Manager Of Patient: Home Nogueira MD Albumin/Globulin [Mass ratio] 1.6 (calc) Normal 1.0-2.5 [facility] Comment on above: Performed By: #### 7 600, 58065 #### [facility]-[address] [address] Manager Of Patient: Home Nogueira MD ALP [Catalytic activity/Vol] 66 U/L Normal 37-153 [facility] Comment on above: Performed By: #### 7 600, 35946 #### [facility]-[address] [address] Manager Of Patient: Home Nogueira MD ALT [Catalytic activity/Vol] 19 U/L Normal 6-29 [facility] Comment on above: Performed By: #### 7 600, 06265 #### [facility]-[address], [address] [place] [address] Manager Of Patient: Home Nogueira MD AST [Catalytic activity/Vol] 15 U/L Normal 10-35 [facility] Comment on above: Performed By: #### 7 600, 42098 #### [facility]-[address], [address] [place] [address] Manager Of Patient: Home Nogueira MD Bilirubin [Mass/Vol] 0.6 mg/dL Normal 0.2-1.2 [facility] Comment on above: Performed By: #### 7 600, 09105 #### [facility]-[address], [address] [place] [address] Manager Of Patient: Home Nogueira MD Calcium [Mass/Vol] 10.0 mg/dL Normal 8.6-10.4 [facility] Comment on above: Performed By: #### 7 600, 02667 #### [facility]-[address], [address] [place] [address] Manager Of Patient: Home Nogueira MD Chloride [Moles/Vol] 103 mmol/L Normal 98-110 [facility] Comment on above: Performed By: #### 7 600, 41921 #### [facility]-[place] [address] Manager Of Patient: Home Nogueira MD CO2 [Moles/Vol] 29 mmol/L Normal 20-32 [facility] Comment on above: Performed By: #### 7 600, 57117 #### [facility]-[place] [address] Manager Of Patient: Home Nogueira MD Creatinine [Mass/Vol] 0.72 mg/dL Normal 0.50-0.99 [facility] Comment on above: Result Comment: For patients >49 years of age, the reference limit for Creatinine is approximately 13% higher for people identified as -[place]. Performed By: #### 7 600, 47701 #### [facility]-[address], [address] [place] [address] Manager Of Patient: Home Nogueira MD eGFR NON-AFR. COMORAN 89 mL/min/1.73m2 Normal > OR = 60 [facility] Comment on above: Performed By: #### 7 600, 89516 #### [facility]-[address], [address] [place] [address] Manager Of Patient: Home Nogueira MD GFR/1.73 sq M predicted among blacks MDRD (S/P/Bld) [Vol rate/Area] 103 mL/min/{1.73_m2} Normal > OR = 60 [facility] Comment on above: Performed By: #### 7 600, 55046 #### [facility]-[address], [address] [place] [address] Manager Of Patient: Home Nogueira MD Globulin (S) [Mass/Vol] 2.7 g/dL (calc) Normal 1.9-3.7 [facility] Comment on above: Performed By: #### 7 600, 68970 #### [facility]-[address], [address] [place] [address] Manager Of Patient: Home Nogueira MD Glucose [Mass/Vol] 93 mg/dL Normal 65-99 [facility] Comment on above: Result Comment: Fasting reference interval Performed By: #### 7 600, 80636 #### [facility]-[place] [address] Manager Of Patient: Home Nogueira MD Potassium [Moles/Vol] 4.0 mmol/L Normal 3.5-5.3 [facility] Comment on above: Performed By: #### 7 600, 61527 #### [facility] [address] Manager Of Patient: Home Nogueira MD Protein [Mass/Vol] 7.1 g/dL Normal 6.1-8.1 [facility] Comment on above: Performed By: #### 7 600, 37465 #### [facility]-[place] [address] Manager Of Patient: Home Nogueira MD Sodium [Moles/Vol] 140 mmol/L Normal 135-146 [facility] Comment on above: Performed By: #### 7 600, 52669 #### [facility]-[address], [address] [place] [address] Manager Of Patient: Home Nogueira MD Urea nitrogen [Mass/Vol] 12 mg/dL Normal 7-25 [facility] Comment on above: Performed By: #### 7 600, 15002 #### [facility]-[address], [address] [place] [address] Manager Of Patient: Home Nogueira MD Urea nitrogen/Creatinin e [Mass ratio] NOT APPLICABLE Normal 6- [facility] Comment on above: Performed By: #### 7 600, 40656 #### [facility]-[address], [address] [place] [address] Manager Of Patient: Home Nogueira MD LIPID PANEL, [facility] Cholesterol [Mass/Vol] 332 mg/dL High <200 [facility] Comment on above: Performed By: #### 7 600, 24052 #### [facility]-[address], [address] [place] [address] Manager Of Patient: Home Nogueira MD Cholesterol in HDL [Mass/Vol] 46 mg/dL Low > OR = 50 [facility] Comment on above: Performed By: #### 7 600, 43877 #### [facility]-[address], [address] [place] [address] Manager Of Patient: Home Nogueira MD Cholesterol in LDL [Mass/Vol] 245 mg/dL (calc) High [facility] Comment on above: Result Comment: LDL- C levels > or = 190 mg/dL may indicate familial hypercholesterolemia (FH). Clinical assessment and measurement of blood lipid levels should be considered for all first degree relatives of patients with an FH diagnosis. For questions about testing for familial hypercholesterolemia, please call [employer] [facility] at [phone].GENE.INFO. Dede López, et al. J National Lipid Association Recommendations for Patient-Centered Management of Dyslipidemia: Part 1 Journal of Clinical Lipidology 2015;9(2), 129-169. Reference range: <100 Desirable range <100 mg/dL for primary prevention; <70 mg/dL for patients with CHD or diabetic patients with > or = 2 CHD risk factors. LDL-C is now calculated using the Susan calculation, which is a validated novel method providing better accuracy than the Friedewald equation in the estimation of LDL-C. Robert GORDON et al. BELL. 2013;310(19): 7097-1030 (http://education.ChromoTek/faq/NFN281) Performed By: #### 7 600, 45934 #### [facility], [address] [place] [address] Manager Of Patient: Home Nogueira MD Cholesterol.total/ Cholesterol in HDL [Mass ratio] 7.2 (calc) High <5.0 [facility] Comment on above: Performed By: #### 7 600, 42719 #### [facility]-[address], [address] [place] [address] Manager Of Patient: Home Nogueira MD NON HDL CHOLESTEROL 286 mg/dL (calc) High <130 [facility] Comment on above: Result Comment: Non- HDL level > or = 220 is very high and may indicate genetic familial hypercholesterolemia (FH). Clinical assessment and measurement of blood lipid levels should be considered for all first-degree relatives of patients with an FH diagnosis. For patients with diabetes plus 1 major ASCVD risk factor, treating to a non-HDL-C goal of <100 mg/dL (LDL-C of <70 mg/dL) is considered a therapeutic option. Performed By: #### 7 600, 49934 #### [facility]-[address], [address] [place] [address] Manager Of Patient: Home Nogueira MD Triglyceride [Mass/Vol] 216 mg/dL High <150 [facility] Comment on above: Result Comment: If a non-fasting specimen was collected, consider repeat triglyceride testing on a fasting specimen if clinically indicated. Dede et al. J. of Clin. Lipidol. 2015;9:129-169. Performed By: #### 7 600, 36116 #### [facility], [address] [place] [address] Manager Of Patient: Home Nogueira MD Encounters Encounter Date Encounter Type Care Provider Facility Start: 07-19-2024 [facility] NESTOR VALADEZ [facility] Start: 06-09-2024 End: 06-09-2024 ambulatory RITA L[facility] Start: 08-16-2023 End: 08-16-2023 ambulatory NESTOR VALADEZ [facility] Start: 11-09-2019 End: 11-09-2019 Patient encounter procedure Nestor Valadez [facility] Plan of Treatment Date Care Activity Detail Author Start: 05-14-2020 End: 05-14-2020 Office Visit 05/14/2020 Office Visit Dentistry Nestor Valadez [facility] Start: 02-01-2020 End: 02-01-2020 Office Visit 02/01/2020 Office Visit Dentistry Shreya Li DMD [facility] Start: 05-28-2019 Influenza vaccinatio n given INFLUENZA VACCINE (#1) [facility] Start: 2016 Varicella-zoster vaccine (product) ADULT VZV VACCINE [facility] Start: 2006 Colonoscopy COLONOSCOPY 10 YR [facility] Start: 2006 Screening for malign ant neoplasm of colon [facility] Start: 2006 SHINGLES VACCINE (1 of 2) SHINGLES VACCINE (1 of 2) [facility] Start: 1996 Screening mammography MAMMOGRAM [facility] Start: 1977 Human papilloma viru s screening PAP SMEAR [facility] Start: 1977 Tetanus, diphtheria and acellular pertussis vaccination TDAP/TD ADULT [facility] Start: 1974 ANNUAL WELLNESS VISIT ANNUAL WELLNES S VISIT [facility] Start: 1968 Adult depression screening assessment DEPRESSION SCREENING [facility] Start: 1956 Hepatitis C screening HEPATITIS C [facility] Payers Date Payer Category Payer Unknown [id number] 1955 Unknown [id number] 1955 Unknown [id number] Medicare [id number] Unknown [employer] DENTAL M [employer]TLIFE DENTAL xxxxxxxxx Effective for all dates DENTAL xxxxxxxxx [id number] Social History Date Type Detail Facility Tobacco smoking status NHIS Unknown if ev er smoked [facility] Sex Assigned At Not on file [facility] Advance Directives No Advanced Directives Records FoundDocuments on File Type Date 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 [facility]. provides no warranty or guarantee of the accuracy or completeness of information in this document.
== END | disposition home or self-care (01) ==
LOC: CVS 09:11
PROVIDERS: PCP Family Medicine; Referring Provider Internal Medicine Cardiovascular Disease; Visit Provider Internal Medicine Cardiovascular Disease
DX: R42 Dizziness and giddiness (principal)
CPT/HCPCS: 93880

== ENCOUNTER → 2024-11-15 | Outpatient (CLI) | payer MEDICARE, SELFPAY ==
--- NOTE | 2024-11-15 15:23 | BI_ITS ---
PROCEDURE: SCRN MAMM (CAD)W/BARBY BILAT REASON FOR EXAM: F, Age 69 y/o, no family history. TECHNIQUE: Bilateral screening digital breast tomosynthesis with 2D and 3D images. Computer aided detection. COMPARISON: Prior exam(s) dating back to September 23, 2023.. FINDINGS: The breasts are extremely dense which lowers the sensitivity of mammography. Stable small fat containing bilateral axillary lymph nodes. No suspicious masses, areas of developing architectural distortion, or suspicious calcifications. BI/SCRN MAMM (CAD)W/BARBY BILAT IMPRESSION: BI-RADS 2: BENIGN. RECOMMEND ANNUAL MAMMOGRAPHIC SCREENING. Follow-up code: Routine Follow-up The patient will be notified of the results by letter. Reading Location: [id number]
--- NOTE | 2024-11-15 15:27 | BD_ITS ---
PROCEDURE: DEXA BONE DENSITY STUDY REASON FOR EXAM: F, age 69 y/o . Patient is postmenopausal. TECHNIQUE: DEXA scan of the lumbar spine and both hips. COMPARISON: None. FINDINGS: T-SCORES Lumbar spine: Bone mineral density measures 1.057 grams/centimeter squared. T- score measures 0.1 and Z-score measures 2.1 Left hip: Total bone mineral density of the left hip measures 0.921 grams/centimeter squared. T-score measures -0.2 and Z-score measures 1.2. Bone mineral density of the left femoral neck measures 0.642 grams/centimeter sq. T-score measures -1.9 and Z-score measures -0.2 Right hip: Total bone mineral density of the right hip measured 0.947 grams/centimeter sq. T-score measures 0 and Z-score measures 1.5. Bone mineral density of the right femoral neck measures 0.696 grams/centimeter squared. T-score measures -1.4 and Z-score measures 0.3. Patient demonstrates osteopenia of both hips and normal bone mineral density of the lumbar spine. FRAX* Results: 10 Year Probability of Fracture: Hip Fracture(1): 11% Major Osteoporotic Fracture(2): 1.6% *FRAX is a trademark of the [employer]'s [place] for Metabolic Bone Disease, World Health Organization (WHO) Collaborating [place]. 1-The 10-year probability of fracture may be lower than reported if the patient has received treatment. 2-Major Osteoporotic Fracture: Clinical Spine, Forearm, Hip or Shoulder. The T-scores are also available for review on the [facility] PACS or by accessing the [facility] electronic medical record. BD/Dexa Bone Density Study IMPRESSION: OSTEOPENIA. Reading Location: [id number]
== END | disposition home or self-care (01) ==
LOC: OPBD 15:22
PROVIDERS: PCP Family Medicine; Referring Provider Family Medicine; Visit Provider Family Medicine
DX: Z12.31 Encounter for screening mammogram for malignant neoplasm of breast (principal); M81.0 Age-related osteoporosis without current pathological fracture
CPT/HCPCS: 77063; 77067; 77080

== ENCOUNTER → 2025-03-28 | Outpatient (CLI) | payer MEDICARE, SELFPAY ==
--- NOTE | 2025-03-28 12:41 | ECHOD_ITS ---
Reason For Study Reason For Study: Diastolic Dysfunction Procedure This was a 2D Doppler, Color Flow transthoracic echocardiogram. Exam performed in department. Left Ventricle Normal LV size. Mild concentric left ventricular hypertrophy. The LV ejection fraction is 65 %. Stage 1 diastolic dysfunction. Right Ventricle Normal right ventricle. Atria The left and right atria are normal. Mitral Valve Trivial mitral valve insufficiency. Tricuspid Valve Trivial tricuspid valve insufficiency. Normal pulmonary artery pressure. Aortic Valve Aortic sclerosis, no stenosis. Trivial aortic valve insufficiency. Pulmonic Valve The pulmonic valve is not well visualized. Great Vessels Normal sized aortic root. Pericardium/Pleural No pericardial effusion. MMode/2D Measurements & Calculations LVIDd: 4.1 cm IVSd: 1.2 cm Ao root diam: 2.9 cm LVIDs: 2.4 cm LVPWd: 0.95 cm RVDd: 3.6 cm FS: 41.8 % LAV(MOD-bp): 44.8 ml LVAd ap4: 25.3 cm2 SV(MOD-sp4): 42.6 ml LAV(MOD-bp) Indexed: 24.7 ml/m2 LVLd ap4: 7.9 cm SI(MOD-sp4): 23.4 ml/m2 LAV(MOD-sp2): 38.7 ml EDV(MOD-sp4): 68.0 ml LAV(MOD-sp4): 48.4 ml EDV(sp4-el): 69.0 ml LVAs ap4: 13.2 cm2 LVLs ap4: 6.5 cm ESV(MOD-sp4): 25.4 ml ESV(sp4-el): 22.7 ml EF(MOD-sp4): 62.6 % EF(sp4-el): 67.1 % SV(sp4-el): 46.3 ml LA A4 area: 18.5 cm2 LA dimension(2D): 3.5 cm RA A4 area: 14.1 cm2 TAPSE: 2.6 cm Time Measurements MV dec time: 0.21 sec Doppler Measurements & Calculations MV E max thaddeus: 84.4 cm/sec Lat Peak E' Thaddeus: 11.2 cm/sec Med Peak E' Thaddeus: 9.9 cm/sec MV A max thaddeus: 117.3 cm/sec E/E' lat: 7.5 E/E' med: 8.5 MV E/A: 0.72 MV V2 max: 126.2 cm/sec MV P1/2t max thaddeus: 102.9 cm/sec Ao V2 max: 179.9 cm/sec MV max P.4 mmHg MV P1/2t: 75.4 msec Ao max P.0 mmHg MV V2 mean: 65.7 cm/sec Ao V2 mean: 117.2 cm/sec MV mean P.0 mmHg MV dec slope: 399.6 cm/sec2 Ao mean P.5 mmHg MV V2 VTI: 33.1 cm MVA(P1/2t): 2.9 cm2 Ao V2 VTI: 38.7 cm AV (velocity ratio): 0.72 LV V1 max: 137.6 cm/sec TR max thaddeus: 222.1 cm/sec LV V1 max P.6 mmHg TR max P.7 mmHg LV V1 mean P.8 mmHg LV V1 mean: 90.3 cm/sec LV V1 VTI: 27.7 cm ECHO/Echo Complete Interpretation Summary Mild concentric left ventricular hypertrophy. The LV ejection fraction is 65 %. Stage 1 diastolic dysfunction. Aortic sclerosis, no stenosis. Ordering Physician: Teagan Purcell Referring Physician: Teagan Purcell Performed By: Dakota Tran [facility]
== END | disposition home or self-care (01) ==
LOC: CVS 12:39
PROVIDERS: PCP Family Medicine; Referring Provider Internal Medicine Cardiovascular Disease; Visit Provider Internal Medicine Cardiovascular Disease
DX: I51.89 Other ill-defined heart diseases (principal); Q24.8 Other specified congenital malformations of heart
CPT/HCPCS: 93306